=== PATIENT | male | born 1985 | race African-American/Black ===

== ENCOUNTER 2016-11-24 15:57 | Emergency (ER) | payer OTHER ==
[~2016-11-24] VITALS: Ht 180.3 cm; Wt 100.0 kg
[~2016-11-24 15:57] MED LIST: FLEXERIL10 MG PO; HYDROCHLOROTHIA25 MG PO
[2016-11-24 16:44] LABS: HEMATOCRIT 40.4 % (38.0-50.0); MCHC 33.7 G/DL (30.0-36.0); MCV 89.2 FL (86-99); MEAN PLAT.VOLUME 12.3 uM^3 (9.0-12.4); PLATELET COUNT 231 K/uL (156-360); RBC DIS.WIDTH-SD 42.4 % (39-53); RED BLOOD COUNT 4.53 M/uL (4.00-5.50); WHITE BLOOD COUNT 8.8 K/uL (4.1-10.2)
[2016-11-24 17:29] LABS: CHLORIDE 107 mEq/L (99-109); POTASSIUM 4.1 mEq/L (3.7-5.4); SODIUM 141 mEq/L (136-147)
[2016-11-24 17:32] LABS: GLUCOSE 127 mg/dL (70-99)
[2016-11-24 17:33] LABS: ANION GAP 9 MEQ/L (2-14)
[2016-11-24 17:34] LABS: TOTAL BILIRUBIN 0.2 mg/dL (0.0-1.0)
[2016-11-24 17:35] LABS: ALKALINE PHOSPHATASE 73 IU/L (3-129); SERUM ETHYL ALCOHOL < 10 mg/dL
[2016-11-24 17:36] LABS: GFR ESTIMATE (CALCULATED) > 59 mL/min/
[2016-11-24 17:37] LABS: UREA NITROGEN (BUN) 14 mg/dL (9-23)
[2016-11-24 17:39] LABS: TROP-I INTERPRETATION NEGATIVE; TROPONIN-I < 0.01 ng/mL (0.0-0.30)
[2016-11-24 18:22] LABS: ADD MIUA? NO; BILIRUBIN NEGATIVE; BLOOD NEGATIVE; COLOR COLORLESS ((YELLOW)); GLUCOSE (STRIP) NEGATIVE; KETONES NEGATIVE; LEUKOCYTES NEGATIVE; NITRITE NEGATIVE; PROTEIN (STRIP) NEGATIVE; UROBILINOGEN 0.2 MG/DL (0.2-1.0)
[2016-11-24 18:45] LABS: ADD MEDTOX COMMENT Y; AMPHETAMINE NEGATIVE (500 ng/mL); BARBITURATES NEGATIVE (200 ng/mL); BENZODIAZEPINES NEGATIVE (150 ng/mL); COCAINE NEGATIVE (150 ng/mL); INTERNAL CONTROLS VALID? YES; METHADONE NEGATIVE (200 ng/mL); METHAMPHETAMINE NEGATIVE (500 ng/mL); OPIATES (MORPHINE) NEGATIVE (100 ng/mL); OXYCODONE NEGATIVE (100 ng/mL); PHENCYCLIDINE NEGATIVE (25 ng/mL); PROPOXYPHENE NEGATIVE (300 ng/mL); THC CANNABINOIDS PRESUMPTIVE POSITIVE (50 ng/mL); TRICYCLIC ANTIDEPRESSANTS NEGATIVE (300 ng/mL)
[2016-11-24 19:04] VITALS: BP 144/93
== END 2016-11-24 19:04 | disposition home or self-care (01) ==
LOC: EME 15:57
PROVIDERS: Emergency Medicine
DX: R07.9 Chest pain, unspecified (principal); I10 Essential (primary) hypertension
CPT/HCPCS: 71275; 80053; 81003; 84484; 84999; 85027; 93005; 99281; 99285; G0480; J7030

== ENCOUNTER 2017-11-04 21:25 | Emergency (ER) | payer OTHER ==
[~2017-11-04] VITALS: Ht 177.8 cm; Wt 113.4 kg
[2017-11-04 22:28] LABS: HEMATOCRIT 41.6 % (38.0-50.0); HEMOGLOBIN 14.1 G/DL (12.5-16.6); MCH 30.3 PG (29.0-34.0); MCHC 33.9 G/DL (30.0-36.0); MCV 89.5 FL (86-99); PLATELET COUNT 217 K/uL (156-360); RBC DIS.WIDTH-CV 12.5 % (11.8-14.6); RBC DIS.WIDTH-SD 41.2 % (39-53); RED BLOOD COUNT 4.65 M/uL (4.00-5.50); WHITE BLOOD COUNT 11.8 K/uL (4.1-10.2)
[2017-11-04 22:44] LABS: CHLORIDE 102 mEq/L (99-109); POTASSIUM 3.8 mEq/L (3.7-5.4); SODIUM 141 mEq/L (136-147)
[2017-11-04 22:46] LABS: GLUCOSE 88 mg/dL (70-99)
[2017-11-04 22:50] LABS: GFR ESTIMATE (CALCULATED) > 59 mL/min/ (58.99-99999)
[2017-11-04 22:51] LABS: UREA NITROGEN (BUN) 13 mg/dL (9-23)
[2017-11-04 22:52] LABS: TROP-I INTERPRETATION NEGATIVE; TROPONIN-I < 0.01 ng/mL (0.0-0.30)
[2017-11-05 02:38] LABS: MAGNESIUM 2.1 mg/dL (1.3-2.7)
[2017-11-05 02:48] LABS: TROP-I INTERPRETATION NEGATIVE; TROPONIN-I 0.01 ng/mL (0.0-0.30)
[2017-11-05] MEDS ORDERED: ZANTAC300 MG PO (02:54)
[2017-11-05 03:17] VITALS: BP 140/99
[2017-11-05] MEDS ORDERED: HYDROCHLOROTHIA25 MG PO (23:45)
== END 2017-11-05 03:18 | disposition home or self-care (01) ==
LOC: EME 21:25 → EXP 21:25
PROVIDERS: Physician Assistant
DX: R07.89 Other chest pain (principal); R10.13 Epigastric pain; I10 Essential (primary) hypertension
CPT/HCPCS: 71046; 80048; 82550; 83735; 84484; 85027; 93005; 99281; 99284

== ENCOUNTER 2017-11-05 21:46 | Emergency (ER) | payer OTHER ==
[~2017-11-05] VITALS: Ht 177.8 cm; Wt 119.3 kg
[~2017-11-05 21:46] MED LIST changes: +ZANTAC300 MG PO
[2017-11-05 23:01] LABS: BASOPHIL (%) 0.3 % (0-1); EOSINOPHIL (%) 1.2 % (0-5); EOSINOPHIL COUNT 0.2 K/uL (0-0.3); HEMATOCRIT 39.6 % (38.0-50.0); HEMOGLOBIN 13.6 G/DL (12.5-16.6); IMMATURE GRANULOCYTE (%) 0.2 % (0.0-0.7); LYMPHOCYTE (%) 32.9 % (15-42); MCH 30.5 PG (29.0-34.0); MCHC 34.3 G/DL (30.0-36.0); MCV 88.8 FL (86-99); MONOCYTE (%) 6.7 % (3-12); MONOCYTE COUNT 0.8 K/uL (0-0.8); NEUTROPHIL (%) 58.7 % (45-76); NEUTROPHIL COUNT 7.1 K/uL (1.8-6.4); PLATELET COUNT 209 K/uL (156-360); RBC DIS.WIDTH-CV 12.4 % (11.8-14.6); RBC DIS.WIDTH-SD 40.1 % (39-53); RED BLOOD COUNT 4.46 M/uL (4.00-5.50); WHITE BLOOD COUNT 12.1 K/uL (4.1-10.2)
[2017-11-05 23:07] LABS: D-DIMER ELISA < 150.00 ng/mLDDU (<230)
[2017-11-05 23:17] LABS: ALBUMIN 4.3 g/dL (3.2-4.8); CHLORIDE 102 mEq/L (99-109); POTASSIUM 3.8 mEq/L (3.7-5.4); SODIUM 140 mEq/L (136-147); TROP-I INTERPRETATION NEGATIVE; TROPONIN-I < 0.01 ng/mL (0.0-0.30)
[2017-11-05 23:20] LABS: GLUCOSE 90 mg/dL (70-99)
[2017-11-05 23:22] LABS: TOTAL BILIRUBIN 0.6 mg/dL (0.0-1.0)
[2017-11-05 23:23] LABS: ALKALINE PHOSPHATASE 71 IU/L (3-129); CREATININE 1.1 mg/dL (0.6-1.3); GFR ESTIMATE (CALCULATED) > 59 mL/min/ (58.99-99999)
[2017-11-05 23:24] LABS: UREA NITROGEN (BUN) 16 mg/dL (9-23)
[2017-11-05 23:25] LABS: AST (GOT) 31 IU/L (2-34)
[2017-11-05 23:26] LABS: ALT (GPT) 51 IU/L (3-49)
[2017-11-05 23:27] LABS: LIPASE 28 U/L (1.0-51.0)
[2017-11-05] MEDS ORDERED: HYDROCHLOROTHIA25 MG PO (23:45)
[2017-11-06 00:29] VITALS: BP 157/104
== END 2017-11-06 00:30 | disposition home or self-care (01) ==
LOC: EME 21:46
PROVIDERS: Emergency Medicine
DX: R07.9 Chest pain, unspecified (principal); I10 Essential (primary) hypertension; K21.9 Gastro-esophageal reflux disease without esophagitis
CPT/HCPCS: 80053; 83690; 84484; 85025; 85379; 93005; 99281; 99284